=== PATIENT | male | born 1955 | race Hispanic/Latino ===

== ENCOUNTER 2019-11-05 23:54 | Inpatient (IN) | payer SELFPAY ==
[2019-11-06] MEDS ORDERED: Pantoprazole 40 MG VIAL ONE (00:15)
[2019-11-06 00:29] LABS: #Lymphocytes 0.9 thou/uL (1.20-3.40); #Monocytes 0.8 thou/uL (0.11-0.59); #Neutrophils 10.8 thou/uL (1.40-6.50); %Basophils 0.2 % (0.0-1.0); %Eosinophils 0.2 % (0.0-10.0); %Lymphocytes 7.2 % (21.0-51.0); %Monocytes 6.1 % (0.0-10.0); %Neutrophils 86.3 % (42.0-75.0); Hemoglobin 7.7 g/dL (14.0-18.0); Mean Corpuscular HGB CONC 30.4 g/dL (32.0-36.0); Mean Corpuscular Hemoglobin 23.3 pg (27.0-31.0); Mean Corpuscular Volume 76.6 fL (78.0-98.0); Mean Platelet Volume 8.1 fL (7.4-10.4); Platelet Count 337 thou/uL (130-400); RBC Distribution Width 17.3 % (11.5-14.5); Red Blood Cell (RBC) Count 3.32 mill/uL (4.70-6.10); White Blood Cell (WBC) Count 12.5 thou/uL (4.8-10.8)
[2019-11-06 00:37] LABS: INR-International Normal Ratio 1.2; PTT 27.4 SEC (22.9-36.1); Prothrombin Time 15.3 SEC (12.0-14.7)
[2019-11-06 00:44] LABS: ALT (SGPT) 12 U/L (8-55); AST (SGOT) 16 U/L (5-34); Albumin 3.3 g/dL (3.4-4.8); Alkaline Phosphatase 55 U/L (40-110); Anion Gap 18 mmol/L (10-20); BUN (Urea Nitrogen) 32 mg/dL (8.4-25.7); Bilirubin, Total 0.7 mg/dL (0.2-1.2); Calc. Creatinine Clearance 0 mL/min (70-130); Calcium 8.1 mg/dL (7.8-10.44); Carbon Dioxide 21 mmol/L (23-31); Chloride 95 mmol/L (98-107); Estimated GFR-MDRD Greater than 90; Globulin 2.9 g/dL (2.4-3.5); Glucose 144 mg/dL (80-115); Potassium 3.9 mmol/L (3.5-5.1); Protein, Total 6.2 g/dL (5.8-8.1); Sodium 130 mmol/L (136-145)
[2019-11-06 00:45] LABS: Acetaminophen Less than 6.0 mcg/mL (10.0-30.0); Alcohol Less than 10 mg/dL (Less than 10); Salicylate Less than 8.0 mg/dL (15.0-30.0)
[2019-11-06] MEDS ORDERED: Ondansetron ODT 4 MG TAB SL PRN (02:36)
[2019-11-06] MEDS ORDERED: Ondansetron PF 4 MG/2 ML Vial IVP PRN ×2 (02:36→03:26)
[2019-11-06 02:40] VITALS: BMI 21.7
[2019-11-06] MEDS ORDERED: Lactated Ringer's 1,000 ML IV SCH (02:45)
[2019-11-06] MEDS ORDERED: hydrALAZINE 20 MG/ML VIAL SLOW IVP PRN (03:26)
[2019-11-06] MEDS ORDERED: Promethazine HCl 12.5 MG in Sodium Chloride 0.9% 50 ML IVPB PRN (03:26)
[2019-11-06] MEDS ORDERED: cloNIDine 0.1 MG TAB PO PRN (03:26)
[2019-11-06 03:42] LABS: Lactic Acid 3.3 mmol/L (0.5-2.2)
[2019-11-06 04:06] LABS: #Lymphocytes 0.9 thou/uL (1.20-3.40); #Monocytes 0.9 thou/uL (0.11-0.59); #Neutrophils 9.8 thou/uL (1.40-6.50); %Eosinophils 0.1 % (0.0-10.0); %Lymphocytes 7.5 % (21.0-51.0); %Monocytes 7.8 % (0.0-10.0); %Neutrophils 84.6 % (42.0-75.0); INR-International Normal Ratio 1.2; Mean Corpuscular Hemoglobin 23.6 pg (27.0-31.0); Mean Corpuscular Volume 78.6 fL (78.0-98.0); Platelet Count 303 thou/uL (130-400); Prothrombin Time 14.9 SEC (12.0-14.7); RBC Distribution Width 17.8 % (11.5-14.5); Red Blood Cell (RBC) Count 3.39 mill/uL (4.70-6.10); White Blood Cell (WBC) Count 11.6 thou/uL (4.8-10.8)
[2019-11-06 04:23] LABS: ALT (SGPT) 12 U/L (8-55); AST (SGOT) 16 U/L (5-34); Albumin 3.2 g/dL (3.4-4.8); Alkaline Phosphatase 52 U/L (40-110); Anion Gap 13 mmol/L (10-20); BUN (Urea Nitrogen) 29 mg/dL (8.4-25.7); Bilirubin, Direct 0.4 mg/dL (0.1-0.3); Bilirubin, Total 0.7 mg/dL (0.2-1.2); Calc. Creatinine Clearance 110 mL/min (70-130); Calcium 7.8 mg/dL (7.8-10.44); Carbon Dioxide 24 mmol/L (23-31); Chloride 100 mmol/L (98-107); Estimated GFR-MDRD Greater than 90; Glucose 103 mg/dL (80-115); Potassium 4.1 mmol/L (3.5-5.1); Protein, Total 5.8 g/dL (5.8-8.1); Sodium 133 mmol/L (136-145)
[2019-11-06] MEDS: Ampicillin/Sulbactam 3 GM in Sodium Chloride 0.9% 100 ML IVPB SCH ×4 (04:29→21:15)
--- NOTE | 2019-11-06 06:03 | PDOC.HHP ---
Hospitalist HPI - History of Present Illness hematemesis History of Present Illness: 64M with PMH daily alcohol use who presents to ED for hematemesis, gustavo reports several episodes normal vomit 1-2 days ago which became bloody over time , denies diarrhea/hematochezia/melena, denies abdominal pain, patient denies travel recently or new/undercooked food. He called EMS for transport and had syncopal episode/fall on walking to stretcher. In ED, BP 57/34 initally, hgb 7.7 , patient denies history of liver disease or cirrhosis. He drinks appx 5-6 drinks per day and gets defensive when I ask questions about the relationship of alcohol use to nausea and bleeding. He had a similatr episode of upper GI bleeding 10 years ago, went to hospital and was transfused but had no endoscopy. Hospitalist ROS - Review of Systems Constitutional: reports: weakness, malaise. denies: fever, chills, sweats, other Eyes: denies: pain, vision change, conjunctivae inflammation, eyelid inflammation, redness, other ENT: denies: ear pain, ear discharge, nose pain, nose discharge, nose congestion , mouth pain, mouth swelling, throat pain, throat swelling, other Respiratory: reports: shortness of breath, other (mild increased WOB) Cardiovascular: reports: light headedness. denies: chest pain, palpitations, orthopnea, paroxysmal noc. dyspnea, edema, other Gastrointestinal: reports: nausea, vomiting, hematochezia. denies: abdominal pain, diarrhea, constipation, melena, other Genitourinary: reports: retention. denies: dysuria, frequency, incontinence, hematuria, other Musculoskeletal: denies: neck pain, shoulder pain, arm pain, back pain, hand pain, leg pain, foot pain, other Skin: denies: rash, lesions, tasha, bruising, other Neurological: denies: weakness, numbness, incoordination, change in speech, confusion, seizures, other All other systems reviewed; all pertinent +/- noted in HPI/Subj - Medication Medications: Active Medications Generic Name Dose Route Start Last Admin Trade Name Freq PRN Reason Stop Dose Admin Ampicillin Sodium/Sulbactam 100 mls @ 200 mls/hr 11/06/19 04:00 11/06/19 04: 29 Sodium 3 gm/ Sodium Chloride IVPB 11/07/19 22:29 100 mls 0400,1000,1600,2200 [facility] Administration Hospitalist History - Past Medical History Other Medical History: edema .GI bleed 10 years ago - Past Surgical History Past Surgical History: reports: no pertinent history - Family History Family History: reports: no pertinent history - Social History Smoking Status: Never smoker Alcohol: reports: Heavy (5-6 per day) Drugs: reports: none - Exam General Appearance: NAD, awake alert Eye: PERRL, anicteric sclera ENT: normocephalic atraumatic, no oropharyngeal lesions, moist mucosa Neck: supple, symmetric, no JVD, no thyromegaly, no lymphadenopathy, no carotid bruit Heart: RRR, no murmur, no gallops, no rubs, normal peripheral pulses Respiratory: CTAB, no wheezes, no rales, no ronchi, normal chest expansion, no tachypnea, normal percussion Gastrointestinal: soft, non-tender, non-distended, normal bowel sounds, no palpable masses, no hepatomegaly, no splenomegaly, no bruit Extremities: no cyanosis, no clubbing, no edema Skin: normal turgor, no lesions, no rashes Neurological: cranial nerve grossly intact, normal sensation to touch, no weakness, no focal deficits, no new deficit Musculoskeletal: normal tone, normal strength, no muscle wasting Psychiatric: normal affect, normal behavior, A&O x 3 Hospitalist Results - Labs Result Diagrams: 11/06/19 03:45 11/06/19 03:45 Lab results: WBC 11.6 thou/uL (4.8-10.8) H 11/06/19 03:45 Hgb 8.0 g/dL (14.0-18.0) L 11/06/19 03:45 Hct 26.7 % (42.0-52.0) L 11/06/19 03:45 MCV 78.6 fL (78.0-98.0) 11/06/19 03:45 Plt Count 303 thou/uL (130-400) 11/06/19 03:45 Neutrophils % 84.6 % (42.0-75.0) H 11/06/19 03:45 Sodium 133 mmol/L (136-145) L 11/06/19 03:45 Potassium 4.1 mmol/L (3.5-5.1) 11/06/19 03:45 Chloride 100 mmol/L (98-107) 11/06/19 03:45 Carbon Dioxide 24 mmol/L (23-31) 11/06/19 03:45 BUN 29 mg/dL (8.4-25.7) H 11/06/19 03:45 Creatinine 0.73 mg/dL (0.7-1.3) 11/06/19 03:45 Glucose 103 mg/dL (80-115) 11/06/19 03:45 Lactic Acid 3.3 mmol/L (0.5-2.2) H 11/06/19 03:15 Calcium 7.8 mg/dL (7.8-10.44) 11/06/19 03:45 Total Bilirubin 0.7 mg/dL (0.2-1.2) 11/06/19 03:45 AST 16 U/L (5-34) 11/06/19 03:45 ALT 12 U/L (8-55) 11/06/19 03:45 Alkaline Phosphatase 52 U/L (40-110) 11/06/19 03:45 Serum Total Protein 5.8 g/dL (5.8-8.1) 11/06/19 03:45 Albumin 3.2 g/dL (3.4-4.8) L 11/06/19 03:45 Hospitalist H&P A/P - Plan Plan: # upper GI bleed - preceeded by regular emesis became bloody, became hypotensive , hgb 7 and got transfused - suspect related to alcohol use - NPO, consult GI, CBC q12h, transfuse prn hgb<8, PPI IV BID # acute urinary retention - went from hypotensive to hypertensive without urinating much, bladder scan w 700cc, starks ordered - follow up CXR, may have been overloaded with fluids given in ED # hypovolemia w/ shock - lactate 6, improved eventually before pressors needed # alcohol abuse - ASE protocol, thiamine/folate/MVI, counsell cessation before d /c - ASE protocol - follow up lipase
[2019-11-06] MEDS ORDERED: Diazepam 5 MG TAB PO PRN (06:13)
[2019-11-06] MEDS ORDERED: Thiamine HCl 200 MG/2 ML VIAL IM SCH (06:15)
[2019-11-06] MEDS ORDERED: Diazepam 5 MG TAB PO SCH (06:15)
--- NOTE | 2019-11-06 08:17 | RAD ---
RADIOGRAPH CHEST 1 VIEW: DATE: 11/06/2019 HISTORY: 64-year-old male with dyspnea. Suspected aspiration. FINDINGS: There are no airspace densities, pulmonary edema, pneumothorax, or cardiomegaly. The lateral costophr enic angles are sharp. IMPRESSION: No acute cardiopulmonary findings.
[2019-11-06] MEDS ORDERED: Multivitamins CHEW w/Iron Tablet PO SCH (09:00)
[2019-11-06] MEDS ORDERED: Multivitamin W/ Minerals 1 TAB PO SCH (09:00)
[2019-11-06] MEDS ORDERED: Folic Acid 1 MG TAB PO SCH (09:00)
[2019-11-06] MEDS ORDERED: Thiamine 100 MG TAB PO SCH (09:00)
[2019-11-06] MEDS: Folic Acid 1 MG TAB PO SCH (09:26)
[2019-11-06] MEDS: Pantoprazole 40 MG VIAL IVP SCH ×2 (09:26→21:03)
[2019-11-06] MEDS ORDERED: Succinylcholine Chloride 20 MG/ML 10 ml SYRINGE FS ONE (09:32)
[2019-11-06] MEDS ORDERED: PROPOFOL 200 MG/20 ML VIAL ONE (09:32)
[2019-11-06] MEDS ORDERED: Lidocaine 1% PF 5 ML VIAL ONE (09:32)
--- NOTE | 2019-11-06 10:33 | CON ---
DATE OF CONSULTATION: 11/06/2019 REASON FOR CONSULTATION: GI bleeding, IMC placement. HISTORY OF PRESENT ILLNESS: The patient is a 64-year-old who comes to the hospital with 3 or 4 episodes of hematemesis, which he says was large volume. He says he drinks about 5 to 6, 12-ounce beers per day. I have seen him in the past in regard to lung abscess. PAST MEDICAL HISTORY: 1. Right lung abscess treated with persistent antibiotics. 2. Alcohol abuse. PAST SURGICAL HISTORY: Bronchoscopy. FAMILY MEDICAL HISTORY: Unremarkable. SOCIAL HISTORY: Alcohol history as noted above. Does not smoke. Does not use illicit drugs. REVIEW OF SYSTEMS: Twelve-point review of systems is otherwise negative. PHYSICAL EXAMINATION: VITAL SIGNS: Temperature 97.9, pulse 110, respirations 18, 100% on room air, blood pressure 121/81. GENERAL: He is awake, alert, in no distress. HEENT: Unremarkable. NECK: No adenopathy or JVD. CHEST: He has a few spider telangiectasias. LUNGS: Clear. CARDIAC: S1, S2 regular. ABDOMEN: Soft. Nontender. EXTREMITIES: No edema. LABORATORY: White blood cell count 11.6, hematocrit 26.7, and platelet count 303. INR 1.2. Sodium 133, potassium 4.1, BUN 29, creatinine 0.7, glucose 103. Lactate 3.3 after initial being 6.9. ASSESSMENT: 1. Gastrointestinal bleed-variceal versus ulcer. 2. Lactic acidosis, secondary bleeding and hypovolemia. PLAN: Agree with hydration, GI consult and monitoring H and H. The patient may need transfusion at some point. It is not clear to me why he is on antibiotics-we will defer to hospitalist group on that. Job ID: [id number]
[2019-11-06 10:35] LABS: Magnesium 1.8 mg/dL (1.6-2.6); Phosphorus 2.2 mg/dL (2.3-4.7)
[2019-11-06] MEDS ORDERED: Sodium Phosphate 15 MMOL in Sodium Chloride 0.9% 250 ML 250 ML IVPB SCH (12:00)
[2019-11-06] MEDS ORDERED: Fentanyl 100 MCG/2 ML VIAL ONE (13:44)
[2019-11-06] MEDS ORDERED: Promethazine HCl 25 MG/ML VIAL SLOW IVP PRN (14:19)
[2019-11-06] MEDS ORDERED: Promethazine HCl 25 MG/ML VIAL IM PRN (14:19)
[2019-11-06] MEDS ORDERED: Ondansetron HCl/PF 4 MG/2 ML Vial IVP PRN (14:19)
[2019-11-06] MEDS: Dextrose 5 % And 0.9 % NaCl 1,000 ML IV SCH ×2 (15:05→22:58)
--- NOTE | 2019-11-06 15:23 | CON ---
DATE OF CONSULTATION: REASON FOR CONSULTATION: Hematemesis. HISTORY OF PRESENT ILLNESS: Mr. Driscoll is a 64-year-old alcoholic, who was brought in to the hospital yesterday with the assistance of his as he was having hematemesis yesterday morning. On and off he has had quite a bit of hiccups, and over the past couple of weeks, he has been feeling weak and dizzy at times. Maybe a week or 2 ago, there is a vague history of throwing up some blood, but yesterday the definitely noted that he felt more weak and dizzy. In the evening, she finally made him come into the hospital. He does take both aspirin and Aleve if not daily at least every other day. He states he drinks some 2-3 to 8 beers a day. His indicates it is more than that. He last had a beer about 2-4 days ago. It sounds like he last drank heavily 4 or 5 days ago, but have maybe a couple of beers even 2 days ago. He denies ever having withdrawals and his confirms that. Lung abscess apparently at this hospital. Apparently, he is under the care of Dr. Nino, for which he had a lung abscess recently that explains the Augmentin he is taking at home. It is unclear why that was, it does not seem to be in the records here at [facility]. PAST MEDICAL HISTORY: He denies any other medical problems. He denies taking medications on a regular basis at home. Surgery is notable for previous appendectomy. FAMILY HISTORY: Negative for liver disease or colorectal cancer. SOCIAL HISTORY: He does not smoke. Heavy alcohol abuse as above. Drugs, none. REVIEW OF SYSTEMS: On reviewing the chart, it is noted that he gave a history of hematemesis, transfusion about 10 years ago at another hospital. He denies any chest pain, dysphagia, odynophagia, shortness of breath, melena, or hematochezia. He denies any cardiac disease or hypertension or diabetes. PHYSICAL EXAMINATION: GENERAL: He is resting in bed. He is a little bit fidgety. He is mildly tachycardic. He is not diaphoretic. He is alert and oriented. VITAL SIGNS: Temperature is 99.1, pulse 110, blood pressure 121/81. HEENT: Conjunctivae and sclerae are pale and clear respectively. LUNGS: Clear. HEART: Regular rate and rhythm. ABDOMEN: Soft and nontender. There is no palpable hepatosplenomegaly. CHEST WALL: Nontender. EXTREMITIES: No clubbing, cyanosis, or edema. LABORATORY DATA: Lipase 10. Sodium 130 yesterday and 133 today, potassium 4.1, BUN and creatinine are 13 and 29, glucose 103, and calcium 7.8. Bilirubin 0.7, AST and ALT are 16 and 12, alkaline phosphatase is 52, and albumin 3.2. Phosphorus 2.2. Magnesium 1.8. Urine drug screen: Alcohol less than 10, acetaminophen less than 6, salicylates less than 8. INR 1.2. White count 11.6 and 12.7 yesterday, hemoglobin 7.7, MCV 78, and platelet count 303. MEDICATIONS: Here in the hospital: 1. Ampicillin. 2. Valium. 3. Folvite. 4. Apresoline. 5. Theragran. 6. Multivitamin. 7. Magnesium oxide based protocol for withdrawal. 8. Zofran p.r.n. 9. Protonix 40 IV q.12. 10. Thiamine. 11. Methazine. 12. He is on no fluids. ASSESSMENT: 1. Hematemesis, Nadine-Sexton tear or ulcer disease or esophagitis or other concerns. It does not appear to be varices as he has no overt signs of portal hypertension and normal platelet count. 2. Microcytic anemia. It is concerning for chronic gastrointestinal blood loss many years ago. He had macrocytic anemia, which prolonged his alcohol abuse. I think he has negative endoscopy if he will stop drinking. He will need a colonoscopy after he goes through alcohol withdrawal. 3. Alcohol withdrawal. He does not appear to be in jose delirium tremens, but is having alcohol withdrawal presently. 4. Malnutrition. I agree with replacing thiamine. If he gets where he can take p.o. and needs a banana bag daily. Electrolytes to be monitored daily including magnesium and phosphorus. We will follow along with you. Job ID: [id number]
[2019-11-06] MEDS: Multivitamins, Adult 10 ML, Folic Acid 1 MG, Thiamine HCl 100 MG in Dextrose 5 %-0.45 %... IV SCH (15:47)
--- NOTE | 2019-11-06 15:54 | OP ---
DATE OF PROCEDURE: 11/06/2019 PREPROCEDURE DIAGNOSES: 1. Reported hematemesis. 2. Alcohol abuse. 3. Alcohol withdrawal. 4. Anemia. 5. Hiccups. POSTPROCEDURE DIAGNOSES: 1. Severe distal esophagitis, consistent with severe reflux or emetogenic injury. 2. Small Nadine-Sexton tear, healing with no visible vessel clot or mucosal laceration. 3. Normal stomach. 4. Normal duodenum. 5. No esophageal varices or gastric varices. ANESTHESIA: General endotracheal anesthesia. PROCEDURE IN DETAIL: After the patient was informed of the risks, benefits, and possible complications of endoscopy including perforation, bleeding, reaction to medication, aspiration, informed consent was obtained. The patient was brought to endoscopy suite, where he was intubated for airway protection. The endoscope was advanced to the esophagus, stomach, and second and third portions of the duodenum and slowly removed. The esophagus was notable for severe distal erosive esophagitis, consistent with emetogenic injury or reflux. There was mild gastritis in forward and retroflexed views. There was no evidence of gastric varices. There was a small Nadine-Sexton tear at the GE junction; however, this seems to be healing with no visible vessel or clot or thrombin plug. The scope was advanced into the duodenum, second and third portions, there was clear bile noted. No ulcers or erosions. The scope was removed. The patient tolerated the procedure well. There were no complications. Recommendations as per orders in chart. Job ID: [id number]
[2019-11-06 16:04] LABS: #Lymphocytes 1.3 thou/uL (1.20-3.40); #Monocytes 1.3 thou/uL (0.11-0.59); #Neutrophils 12.4 thou/uL (1.40-6.50); %Basophils 0.1 % (0.0-1.0); %Eosinophils 0.1 % (0.0-10.0); %Lymphocytes 8.6 % (21.0-51.0); %Monocytes 8.6 % (0.0-10.0); %Neutrophils 82.6 % (42.0-75.0); Hemoglobin 7.6 g/dL (14.0-18.0); Mean Corpuscular HGB CONC 30.7 g/dL (32.0-36.0); Mean Corpuscular Hemoglobin 24.3 pg (27.0-31.0); Mean Corpuscular Volume 79.1 fL (78.0-98.0); Mean Platelet Volume 7.7 fL (7.4-10.4); Platelet Count 336 thou/uL (130-400); RBC Distribution Width 18.6 % (11.5-14.5); Red Blood Cell (RBC) Count 3.14 mill/uL (4.70-6.10)
[2019-11-06] MEDS ORDERED: FLU VACC QS2019-20(6MOS UP)/PF 60 MCG/0.5 ML SYRINGE IM ONE (21:00)
[2019-11-07 03:53] LABS: #Lymphocytes 1.8 thou/uL (1.20-3.40); #Monocytes 0.9 thou/uL (0.11-0.59); #Neutrophils 8.1 thou/uL (1.40-6.50); %Basophils 0.5 % (0.0-1.0); %Eosinophils 0.4 % (0.0-10.0); %Lymphocytes 16.5 % (21.0-51.0); %Monocytes 8.1 % (0.0-10.0); %Neutrophils 74.5 % (42.0-75.0); Hemoglobin 6.8 g/dL (14.0-18.0); Mean Corpuscular HGB CONC 31.8 g/dL (32.0-36.0); Mean Corpuscular Hemoglobin 25.1 pg (27.0-31.0); Mean Corpuscular Volume 79.1 fL (78.0-98.0); Mean Platelet Volume 7.5 fL (7.4-10.4); Platelet Count 258 thou/uL (130-400); RBC Distribution Width 18.3 % (11.5-14.5); Red Blood Cell (RBC) Count 2.72 mill/uL (4.70-6.10); White Blood Cell (WBC) Count 10.8 thou/uL (4.8-10.8)
[2019-11-07 04:07] LABS: Phosphorus 2.5 mg/dL (2.3-4.7)
[2019-11-07 04:11] LABS: Anion Gap 8 mmol/L (10-20); BUN (Urea Nitrogen) 9 mg/dL (8.4-25.7); Calc. Creatinine Clearance 123 mL/min (70-130); Calcium 7.5 mg/dL (7.8-10.44); Carbon Dioxide 27 mmol/L (23-31); Chloride 100 mmol/L (98-107); Estimated GFR-MDRD Greater than 90; Glucose 101 mg/dL (80-115); Magnesium 1.9 mg/dL (1.6-2.6); Potassium 3.1 mmol/L (3.5-5.1); Sodium 132 mmol/L (136-145)
--- NOTE | 2019-11-07 08:54 | PRG ---
DATE OF SERVICE: 11/07/2019 SUBJECTIVE: He underwent EGD yesterday showing a Nadine-Sexton tear. He feels better today. He has had no further hematemesis. OBJECTIVE: VITAL SIGNS: Temperature 98.9, pulse 100, blood pressure 120/79, O2 saturation 96% on room air. HEENT: Unremarkable. NECK: No adenopathy or JVD. CHEST: Fairly clear anteriorly. CARDIAC: S1, S2. Regular. ABDOMEN: Soft. EXTREMITIES: No edema. LABORATORY DATA: Hemoglobin 6.8, hematocrit 21.5, white blood cell count 10.8, and platelet count 258. Sodium 132, potassium 3.1, BUN 9, creatinine 0.6, glucose 101. ASSESSMENT: Gastrointestinal bleeding from Nadine-Sexton tear. PLAN: No acute pulmonary issues. I will defer to the Hospitalist team on transfusing the patient. We will be available as needed. Job ID: [id number]
[2019-11-07] MEDS: Pantoprazole 40 MG VIAL IVP SCH ×2 (09:00→20:22)
[2019-11-07] MEDS ORDERED: Thiamine 100 MG TAB PO SCH (09:00)
[2019-11-07] MEDS: Magnesium Oxide 400 MG TAB PO SCH (09:00)
[2019-11-07] MEDS: Folic Acid 1 MG TAB PO SCH (09:00)
--- NOTE | 2019-11-07 14:25 | PDOC.HOSPP ---
- Subjective Encounter Date: 11/07/19 Encounter Time: 08:15 Subjective: Patient seen and evaluated for upper GI bleed. States feeling much better. Denies any hemoptysis/melena. Denies abdominal pain, nausea or vomiting. Denies SOB/chest pain. No other complaints at this time. No overnight events. - Objective Vital Signs & Weight: Vital Signs (12 hours) Temp BP Pulse Ox 11/07/19 12:00 119/85 11/07/19 11:13 99.0 F 11/07/19 07:35 96 11/07/19 07:33 122/78 11/07/19 07:20 98.9 F 11/07/19 04:07 98.7 F 127/81 Weight Admit Weight 165 lb 1.6 oz Weight 165 lb 1.6 oz Most Recent Monitor Data Heart Rate from ECG 87 NIBP 136/80 NIBP BP-Mean 98 Respiration from ECG 29 SpO2 98 I&O: 11/06/19 11/07/19 11/08/19 06:59 06:59 06:59 Intake Total 490 1450 350 Output Total 620 1900 Balance -130 -450 350 Result Diagrams: 11/07/19 16:25 11/07/19 03:35 EKG Reviewed by me: Yes Hospitalist ROS - Review of Systems Constitutional: denies: fever, chills Cardiovascular: denies: chest pain, palpitations Gastrointestinal: denies: nausea, vomiting, abdominal pain, diarrhea - Medication Medications: Active Medications Generic Name Dose Route Start Last Admin Trade Name Juan Franciscoq PRN Reason Stop Dose Admin Folic Acid 1 mg 11/06/19 09:00 11/07/19 09:00 Folvite PO 1 mg DAILY DARVIN Administration Multivitamins 10 ml/ Folic 1,011.2 mls @ 150 mls/hr 11/06/19 15:00 11/06/19 15:47 Acid 1 mg/ Thiamine HCl 100 mg IV 1,011.2 mls / Dextrose/Sodium Chloride 1500 DARVIN Administration Magnesium Oxide 400 mg 11/07/19 09:00 11/07/19 09:00 Magnesium Oxide PO 400 mg DAILY DARVIN Administration Pantoprazole Sodium 40 mg 11/06/19 09:00 11/07/19 09:00 Protonix IVP 40 mg Q12HR DARVIN Administration Potassium Chloride 20 meq 11/07/19 08:00 11/07/19 11:42 Klor-Con PO 11/08/19 08:01 20 meq TID-WM DARVIN Administration Sodium Chloride 10 ml 11/06/19 09:00 11/07/19 09:01 Flush - Normal Saline IVF 10 ml Q12HR DARVIN Administration - Exam General Appearance: awake alert Heart: RRR, no murmur, no gallops, no rubs, normal peripheral pulses Respiratory: CTAB, no wheezes, no rales, no ronchi Gastrointestinal: soft, non-tender, normal bowel sounds Hosp A/P - Plan GI proph Impression: Upper GI bleed secondary to small russell love tear - resolved Hypovolemic shock - resolved Acute blood loss anemia s/p 1 PRBC Chronic alcohol abuse Electrolyte imbalance Hypokalemia / hyponatremia / hypophosphotemia Tobacco Abuse Plan: Transfuse 1 unit PRBCs Replace potassium Stop IVF Continue PPI Continue ASE protocol Discussed multivitamin, thiamine and slow Fe OTC supplementation after discharge Smoking cessation counseling Ambulate Transfer to medical. Patient seen and examined with [employer] Rolando Black. Feeling better. No new bleeding. Vitals reviewed. Abd - soft, Lungs - CTA B/L. I agree with above note and plan of care. Will transfuse 1 unit PRBC. AM labs. Cont MVM/thiamine AM labs Jackson Burns
[2019-11-07] MEDS: Multivitamins, Adult 10 ML, Folic Acid 1 MG, Thiamine HCl 100 MG in Dextrose 5 %-0.45 %... IV SCH (14:40)
[2019-11-07] MEDS: Diazepam 5 MG TAB PO PRN ×2 (16:29→20:22)
[2019-11-07 16:42] LABS: #Basophils 0.1 thou/uL (0.0-0.2); #Eosinphils 0.1 thou/uL (0.0-0.7); #Lymphocytes 1.8 thou/uL (1.20-3.40); #Monocytes 0.9 thou/uL (0.11-0.59); #Neutrophils 5.3 thou/uL (1.40-6.50); %Basophils 0.7 % (0.0-1.0); %Eosinophils 1.2 % (0.0-10.0); %Lymphocytes 22.1 % (21.0-51.0); %Monocytes 10.6 % (0.0-10.0); %Neutrophils 65.4 % (42.0-75.0); Hemoglobin 7.8 g/dL (14.0-18.0); Mean Corpuscular HGB CONC 31.2 g/dL (32.0-36.0); Mean Corpuscular Hemoglobin 26.2 pg (27.0-31.0); Mean Corpuscular Volume 84.2 fL (78.0-98.0); Mean Platelet Volume 7.8 fL (7.4-10.4); Platelet Count 241 thou/uL (130-400); RBC Distribution Width 18.6 % (11.5-14.5); Red Blood Cell (RBC) Count 2.98 mill/uL (4.70-6.10); White Blood Cell (WBC) Count 8.1 thou/uL (4.8-10.8)
--- NOTE | 2019-11-07 17:01 | PRG ---
DATE OF SERVICE: 11/07/2019 SUBJECTIVE: Mr. Driscoll has had no bleeding or hematemesis. He is not nauseated. He has been a little bit agitated today trying to pull out some IV. He is going to get some Valium for withdrawal. OBJECTIVE: VITAL SIGNS: Temperature is 98.4, blood pressure 136/80, pulse 82. He has been afebrile. LUNGS: Clear. ABDOMEN: Soft, nontender. LABORATORY DATA: White count 10.8, hemoglobin 6.8, down from 7.6 yesterday, platelet count 258. INR 1.2 yesterday. BMP: Sodium 132, BUN and creatinine 9 and 0.65. Liver function tests were normal on admission. ASSESSMENT: 1. Severe erosive esophagitis, Nadine-Sexton tear without bleeding on endoscopy. Would treat medically. Continue to treat medically with PPI. 2. Alcohol abuse, likely contributing to anemia. 3. Anemia, multifactorial. He has gotten a unit of blood today, which I think is reasonable. He shows no signs of acute bleeding. BUN is normal. 4. Concern about possible early withdrawal, nurse is going to give him some Valium. He is a little bit agitated this afternoon. 5. Malnutrition. He is on a banana bag as he was unreliable yesterday taking p.o. medications. RECOMMENDATIONS: 1. Continue PPI. 2. For signs of rebleeding, please do not hesitate to reconsult the GI service. Dr. Dickens will be available over the weekend if needed, otherwise would continue to treat for DTs, nutritional deficiencies and alcohol abuse and continue PPI, transition to p.o. tomorrow if he is showing no signs of bleeding. We will be available if needed. Job ID: [id number]
[2019-11-08 04:27] LABS: #Basophils 0.1 thou/uL (0.0-0.2); #Eosinphils 0.2 thou/uL (0.0-0.7); #Lymphocytes 2.2 thou/uL (1.20-3.40); #Monocytes 0.6 thou/uL (0.11-0.59); #Neutrophils 3.8 thou/uL (1.40-6.50); %Basophils 0.9 % (0.0-1.0); %Eosinophils 3.6 % (0.0-10.0); %Lymphocytes 31.5 % (21.0-51.0); %Monocytes 8.9 % (0.0-10.0); %Neutrophils 55.1 % (42.0-75.0); Hemoglobin 7.3 g/dL (14.0-18.0); Mean Corpuscular HGB CONC 31.7 g/dL (32.0-36.0); Mean Corpuscular Hemoglobin 26.1 pg (27.0-31.0); Mean Corpuscular Volume 82.3 fL (78.0-98.0); Mean Platelet Volume 8.3 fL (7.4-10.4); Platelet Count 229 thou/uL (130-400); RBC Distribution Width 18.4 % (11.5-14.5); Red Blood Cell (RBC) Count 2.78 mill/uL (4.70-6.10); White Blood Cell (WBC) Count 6.8 thou/uL (4.8-10.8)
[2019-11-08 04:38] LABS: Anion Gap 10 mmol/L (10-20); BUN (Urea Nitrogen) Less than 4 mg/dL (8.4-25.7); Calc. Creatinine Clearance 141 mL/min (70-130); Calcium 7.7 mg/dL (7.8-10.44); Carbon Dioxide 23 mmol/L (23-31); Chloride 102 mmol/L (98-107); Estimated GFR-MDRD Greater than 90; Glucose 87 mg/dL (80-115); Potassium 3.3 mmol/L (3.5-5.1); Sodium 132 mmol/L (136-145)
[2019-11-08] MEDS: Folic Acid 1 MG TAB PO SCH (09:46)
[2019-11-08] MEDS: Magnesium Oxide 400 MG TAB PO SCH (09:46)
[2019-11-08] MEDS: Pantoprazole 40 MG VIAL IVP SCH (09:46)
[2019-11-08] MEDS ORDERED: Potassium Chloride 20 MEQ TAB PO SCH (12:00)
[2019-11-08 12:19] LABS: Hemoglobin 8.3 g/dL (14.0-18.0)
[2019-11-08 13:05] VITALS: BP 139/90
[2019-11-08] MEDS: Multivitamins, Adult 10 ML, Folic Acid 1 MG, Thiamine HCl 100 MG in Dextrose 5 %-0.45 %... IV SCH (15:28)
[2019-11-08 16:01] VITALS: TEMP 97.8
[2019-11-08 16:10] LABS: #Basophils 0.1 thou/uL (0.0-0.2); #Eosinphils 0.3 thou/uL (0.0-0.7); #Lymphocytes 1.8 thou/uL (1.20-3.40); #Monocytes 1.2 thou/uL (0.11-0.59); #Neutrophils 4.9 thou/uL (1.40-6.50); %Basophils 1.1 % (0.0-1.0); %Eosinophils 4.1 % (0.0-10.0); %Lymphocytes 21.9 % (21.0-51.0); %Monocytes 14.7 % (0.0-10.0); %Neutrophils 58.1 % (42.0-75.0); Hemoglobin 8.6 g/dL (14.0-18.0); Mean Corpuscular Hemoglobin 25.4 pg (27.0-31.0); Mean Corpuscular Volume 81.9 fL (78.0-98.0); Platelet Count 271 thou/uL (130-400); RBC Distribution Width 18.4 % (11.5-14.5); Red Blood Cell (RBC) Count 3.41 mill/uL (4.70-6.10); White Blood Cell (WBC) Count 8.3 thou/uL (4.8-10.8)
--- NOTE | 2019-11-09 00:48 | DIS ---
DATE OF ADMISSION: 11/06/2019 DATE OF DISCHARGE: 11/08/2019 PRIMARY CARE PROVIDER: Unknown. DISCHARGE DIAGNOSES: 1. Hypovolemic shock. 2. Symptomatic anemia. 3. Upper gastrointestinal bleed, secondary to small Nadine-Sexton tear. 4. Hypokalemia. 5. Hyponatremia. 6. Tobacco abuse. 7. Severe distal esophagitis. CONDITION OF PATIENT ON THE DAY OF DISCHARGE: Stable. I assessed Mr. Driscoll on the day of discharge. He denies any chest pain or shortness of breath. Vital signs are stable. S1 and S2 are heard, regular. Lungs are clear to auscultation bilaterally. DISCHARGE MEDICATIONS: 1. Folic acid 1 mg daily. 2. Thiamine 100 mg daily. 3. Protonix 40 mg 2 times a day. CONSULTATIONS DURING THIS HOSPITALIZATION: 1. Pulmonology, Dr. Nino. 2. Gastroenterology, Dr. Cho. HOSPITAL COURSE: Mr. Driscoll is a pleasant 64-year-old gentleman who was admitted to [facility] for hypovolemic shock in the context of chronic alcohol abuse. He received 2 units of packed RBCs. He was seen by Gastroenterology and Pulmonary and Critical Care Medicine Services. He underwent EGD on November 06, 2019, which showed severe distal esophagitis consistent with severe reflux or hematogenic injury and small Nadine-Sexton tear healing with no visible muscle clot or mucosal laceration. There were no esophageal varices or gastric varices. His hemoglobin remained stable. He ambulated with walking program and is being discharged home in a stable condition. LABORATORY DATA: On the day of discharge, he has hemoglobin 8.3. Sodium 132; potassium 3.3, which was replaced; and creatinine 0.57. Many thanks for allowing me to participate in your patient's care. Please feel free to contact me with any questions or concerns. POST-ACUTE CARE FOLLOWUP: With primary care provider in [address] Cho in 2 to 3 weeks. DIET: Regular. ACTIVITY: As tolerated. DISCHARGE DESTINATION: Home. TIME SPENT: Total amount of time spent coordinating this discharge: 33 minutes. Job ID: [id number]
== END 2019-11-08 16:25 | disposition home or self-care (01) | DRG 368 ==
LOC: ERS 23:54 → IMCU/EMU 11-06 02:28
PROVIDERS: ADMIT Internal Medicine; ATTEND Internal Medicine
PROC: 0DJ08ZZ Inspection of Upper Intestinal Tract, Via Natural or Artificial Opening Endoscopic (ICD-10-PCS; principal; 2019-11-06)
PROC: 30233N1 Transfusion of Nonautologous Red Blood Cells into Peripheral Vein, Percutaneous Approach (ICD-10-PCS; 2019-11-06)
DX: K22.6 Gastro-esophageal laceration-hemorrhage syndrome (principal); R57.1 Hypovolemic shock; E87.1 Hypo-osmolality and hyponatremia; E87.2 Acidosis; F10.239 Alcohol dependence with withdrawal, unspecified; E46 Unspecified protein-calorie malnutrition; D62 Acute posthemorrhagic anemia; E87.6 Hypokalemia; R33.9 Retention of urine, unspecified; K21.0 Gastro-esophageal reflux disease with esophagitis; E83.39 Other disorders of phosphorus metabolism; F17.200 Nicotine dependence, unspecified, uncomplicated; Y90.0 Blood alcohol level of less than 20 mg/100 ml; Z68.25 Body mass index [BMI] 25.0-25.9, adult; Z79.899 Other long term (current) drug therapy; Z79.82 Long term (current) use of aspirin
CPT/HCPCS: 36415; 36430; 71045; 80048; 80053; 80307; 83605; 83690; 83735; 84100; 85025; 85610; 85730; 86850; 86900; 86901; 93005; 96361; 96374; 99292; C9113; J0295; J2001; J2704; J3010; J3411; J3475; J3490; J7042; J7050; P9016